=== PATIENT | female | born 1995 | race American Indian/Alaskan Native ===

== ENCOUNTER 2018-04-03 16:15 | Emergency (ER) | payer SELFPAY ==
[2018-04-03 16:41] VITALS: BP 100/60
[2018-04-03 17:52] LABS: Hematocrit 36.5 % (30.3-42.9); Hemoglobin 11.6 gm/dl (10.1-14.3); Mean Corpuscular HGB Conc 32 % (30-34); Mean Corpuscular Hemoglobin 26 pg (28-32); Mean Corpuscular Volume 82 fl (79-97); Platelet Count 242 K/mm3 (140-440); Red Blood Count 4.45 M/mm3 (3.65-5.03); Red Cell Distribution Width 15.2 % (13.2-15.2)
[2018-04-03 18:11] LABS: Bacteria,Urine 1+ /HPF (Negative); Bilirubin,Urine NEG (Negative); Blood,Urine NEG (Negative); Color,Urine Yellow (Yellow); Mucus,Urine 3+ /HPF; Protein,Urine <15 mg/dL mg/dL (Negative)
[2018-04-03 18:15] LABS: HCG Qualitative,Urine Negative (Negative)
[2018-04-03 18:20] LABS: BUN/Creatinine Ratio 16; Blood Urea Nitrogen 11 mg/dL (7-17); Calcium 9.6 mg/dL (8.4-10.2); Hemolysis Index 11
--- NOTE | 2018-04-03 21:09 | XRay Report ---
FINAL REPORT EXAM: XR CHEST ROUTINE 2V HISTORY: SOB/CHEST PAIN TECHNIQUE: Two views of the chest Comparison: None FINDINGS: Normal heart size. Lungs are clear and well expanded without focal infiltrate or consolidation. No effusion. Mild bronchial wall thickening/prominence IMPRESSION: Mild bronchial wall prominence may represent bronchitis. Otherwise, no acute cardiopulmonary disease identified.
== END 2018-04-03 20:04 | disposition left against medical advice (07) ==
LOC: ED 16:15
DX: R06.02 Shortness of breath (principal); Z53.21 Procedure and treatment not carried out due to patient leaving prior to being seen by health care provider
CPT/HCPCS: 36415; 71046; 80048; 81001; 81025; 84484; 85027; 85379; 93005; 93010